=== PATIENT | female | born 1975 ===

== ENCOUNTER → 2018-07-27 20:37 | Outpatient (REF) | payer OTHER, SELFPAY ==
[2018-07-27 21:06] LABS: HEMOLYSIS < 15 (0-50)
[2018-07-27 21:13] LABS: Alanine Aminotransferase 29 IU/L (9-52); Albumin 4.8 g/dL (3.5-5.0); Albumin Globulin Ratio 1.5 (1.0-2.8); Alkaline Phosphatase 101 U/L (38-126); Aspartate Aminotransferase 35 IU/L (14-36); Bilirubin Total 0.6 mg/dL (0.2-1.3); Blood Urea Nitrogen 8 mg/dL (7-17); Calcium 9.5 mg/dL (8.4-10.2); Carbon Dioxide 24 mmol/L (22-32); Chloride 100 mmol/L (98-107); Cholesterol 232 mg/dL (140-199); Estimated Glomerular Filt Rate > 60.0 mL/min (>60); Globulin 3.3 g/dL (1.7-4.1); Glucose 109 mg/dL (70-100); HDL Cholesterol 52 mg/dL (40-60); HEMOLYSIS < 15 (0-50); LDL Cholesterol Calculated 128 mg/dL (<100); Sodium 139 mmol/L (137-145); Total Protein 8.1 g/dL (6.3-8.2); Triglycerides 261 mg/dL (35-150)
[2018-07-27 21:14] LABS: Add Manual Diff / Slide Review NO; Basophils Absolute Auto 100 /uL (0-100); Basophils Percent Auto 0.7 % (0-2); Eosinophils Absolute Auto 100 /uL (0-450); Eosinophils Percent Auto 0.6 % (2-4); Hematocrit 37.7 % (36-46); Hemoglobin 12.3 g/dL (12.0-16.0); Lymphocytes Absolute Auto 2100 /uL (1100-4500); Lymphocytes Percent Auto 18.9 % (25-40); Mean Corpuscular HGB Conc 32.7 % (30-36); Mean Corpuscular Hemoglobin 26.5 PG (26-34); Mean Corpuscular Volume 81.2 fL (80-100); Monocytes Absolute Auto 600 /uL (0-900); Neutrophils Absolute Auto 8400 /uL (1500-7000); Neutrophils Percent Auto 74.8 % (50-75); Platelet Count 248 X10^3/uL (150-400); Red Blood Cell Count 4.64 X10^6/uL (4.0-5.2); Red Cell Distribution Width 16.1 % (11.6-14.8); White Blood Cell Count 11.2 X10^3/uL (4.5-11.0)
[2018-07-27 21:38] LABS: Creatinine Urine Random 19.5 mg/dL; Protein (Total) Urine Random 21 mg/dL (0-12); Protein Creatinine Ratio Urine 1.07 GRAM/24H
[2018-07-27 21:42] LABS: Thyroid Stimulating Hormone 2.15 uIU/mL (0.47-4.68)
[2018-07-27 21:47] LABS: Ferritin 15.1 ng/mL (6.27-137)
[2018-07-27 22:09] LABS: Iron 75 ug/dL (37-170)
[2018-07-27 22:14] LABS: C-Reactive Protein Quant 2.5 mg/dL (<1.0)
[2018-07-27 22:15] LABS: Vitamin D 25 Hydroxy (D3) 37.7 ng/mL (30.0-100.0)
[2018-07-27 22:22] LABS: Percent Iron Saturation 13 % (15-50); Total Iron Binding Capacity 563 ug/dL (265-497); Transferrin 425 mg/dL (206-381)
[2018-07-27 22:30] LABS: Hemoglobin A1C% w Est Avg Glu 5.6 % (4.0-6.0)
[2018-07-31 11:49] LABS: Magnesium, RBC 4.7 mg/dL (4.0-6.4)
== END ==
LOC: LAB 20:37
PROVIDERS: Visit Provider Family Medicine
DX: I10 Essential (primary) hypertension (principal); F41.1 Generalized anxiety disorder; R53.83 Other fatigue; G35 Multiple sclerosis; E55.9 Vitamin D deficiency, unspecified; R73.01 Impaired fasting glucose; E53.8 Deficiency of other specified B group vitamins; E83.42 Hypomagnesemia
CPT/HCPCS: 36415; 80053; 80061; 82306; 82570; 82728; 83036; 83540; 83550; 83735; 84156; 84443; 85025; 86140